=== PATIENT | female | born 1990 | race African-American/Black ===

== ENCOUNTER 2018-01-01 22:48 | Emergency (ER) | payer OTHER ==
[~2018-01-01] VITALS: Ht 149.9 cm; Wt 49.0 kg
[2018-01-01 22:57] VITALS: BP 111/67
[2018-01-01] MEDS ORDERED: TYLENOL325 MG PO (23:19)
== END 2018-01-01 23:42 | disposition home or self-care (01) ==
LOC: ER 22:48
DX: O26.892 Other specified pregnancy related conditions, second trimester (principal); Z3A.23 23 weeks gestation of pregnancy; R10.30 Lower abdominal pain, unspecified